=== PATIENT | female | born 1935 | race Caucasian/White ===

== ENCOUNTER 2018-02-02 19:52 | Inpatient (IN) ==
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
[2018-02-02 21:20] LABS: Baso % (Auto) 0.5 % (0.0-2.0); Eos % (Auto) 0.4 % (0.0-4.0); Hematocrit 35.3 % (35.0-46.0); Hemoglobin 11.9 gm/dL (11.6-15.3); Lymph # (Auto) 1.4 th/mm3 (1.0-4.8); Lymph % (Auto) 22.4 % (9.0-44.0); Mean Corpuscular HGB Conc 33.8 % (32.0-36.0); Mean Corpuscular Hemoglobin 32.1 pg (27.0-34.0); Mean Corpuscular Volume 94.8 fL (80.0-100.0); Mono # (Auto) 0.4 th/mm3 (0.0-0.9); Mono % (Auto) 6.1 % (0.0-8.0); Neut # (Auto) 4.3 th/mm3 (1.8-7.7); Neut % (Auto) 70.6 % (16.0-70.0); Platelet Count 299 th/mm3 (150-450); Red Blood Count 3.73 mil/mm3 (4.00-5.30); Red Cell Distribution Width 13.7 % (11.6-17.2); White Blood Count 6.1 th/mm3 (4.0-11.0)
[2018-02-02 21:24] LABS: Amphetamine Screen,Urine Neg (Neg); Barbiturate Screen,Urine Neg (Neg); Cannabinoid Screen,Urine Neg (Neg); Cocaine Screen,Urine Neg (Neg)
[2018-02-02 21:33] LABS: Alanine Aminotransferase 17 U/L (10-53)
[2018-02-02 21:35] LABS: Opiate Screen,Urine Neg (Neg)
[2018-02-02 21:43] LABS: Alkaline Phosphatase 98 U/L (45-117); Total Protein 7.7 g/dL (6.4-8.2)
[2018-02-02 21:44] LABS: Albumin 3.9 g/dL (3.4-5.0); Anion Gap 11 meq/L (5-15); Aspartate Aminotransferase 36 U/L (15-37); Blood Urea Nitrogen 20 mg/dL (7-18); Calcium 8.9 mg/dL (8.5-10.1); Carbon Dioxide 21.2 meq/L (21.0-32.0); Chloride 108 meq/L (98-107); Glomerular Filtration Rate 69 mL/min (>89); Glucose,Random 97 mg/dL (74-106); Potassium 3.7 meq/L (3.5-5.1); Sodium 140 meq/L (136-145)
--- NOTE | 2018-02-02 21:54 | CT ---
EXAM DATE: 02/02/2018 9:10 PM EDT AGE/SEX: 82 years / Female INDICATIONS: Non reactive pupils, altered mental status. CLINICAL DATA: This is the patient's initial encounter. Patient reports that signs and symptoms have been present for 1 day and indicates a pain score of 0/10. MEDICAL/SURGICAL HISTORY: Hypertension. Osteoarthritis. Dementia. None. RADIATION DOSE: 56.35 CTDI (mGy) COMPARISON: No prior exams available for comparison. TECHNIQUE: CT of the head without contrast. Using automated exposure control and adjustment of the mA and/or kV according to patient size, radiation dose was kept as low as reasonably achievable to ob tain optimal diagnostic quality images. DICOM format image data is available electronically for revi ew and comparison. FINDINGS: Cerebrum: The ventricles and cortical sulci are widened. No evidence of midline shift, mass lesion , hemorrhage or acute infarction. No extraaxial fluid collections are seen. Posterior Fossa: The cerebellum and brainstem are intact. The 4th ventricle is midline. The cerebe llopontine angle is unremarkable. Extracranial: The visualized portion of the orbits is intact. Skull: The calvaria is intact. No evidence of skull fracture. 1. No acute abnormality seen. 2. Atrophy. . Electronically signed by: Henrik Whitten MD 02/02/2018 9:52 PM EDT
[2018-02-03] MEDS ORDERED: Aluminum/Magnesium/Simethacone Susp 30 ML UDC PO PRN (13:03)
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
[2018-02-03] MEDS: Ferrous Sulfate 325 MG Tablet PO SCH (18:45)
[2018-02-03] MEDS: DONEPEZIL 10 MG PO SCH (23:12)
[2018-02-03] MEDS: Divalproex 125 MG Sprinkles Capsule PO SCH (23:12)
[2018-02-04] MEDS: Lisinopril 10 MG Tablet PO SCH ×2 (10:10→17:47)
[2018-02-04] MEDS: Ferrous Sulfate 325 MG Tablet PO SCH ×2 (10:11→17:45)
[2018-02-04] MEDS ORDERED: Aluminum/Magnesium/Simethacone Susp 30 ML UDC PO PRN (10:55)
[2018-02-04] MEDS ORDERED: Acetaminophen 325 MG Tablet PO PRN (10:55)
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
[2018-02-04] MEDS: Escitalopram 10 MG Tablet PO SCH (17:45)
[2018-02-04] MEDS: MULTIVITAMIN WITH MINERALS PO SCH (17:46)
[2018-02-04] MEDS: amLODIPine 5 MG Tablet PO SCH (17:46)
[2018-02-04] MEDS: Timolol 0.5% Drops 5 ML Bottle EACH EYE SCH (17:47)
[2018-02-04] MEDS: Divalproex 125 MG Sprinkles Capsule PO SCH (21:09)
[2018-02-04] MEDS: DONEPEZIL 10 MG PO SCH (21:09)
[2018-02-05] MEDS: Lisinopril 10 MG Tablet PO SCH (09:19)
[2018-02-05] MEDS: amLODIPine 5 MG Tablet PO SCH (09:19)
[2018-02-05] MEDS: Ferrous Sulfate 325 MG Tablet PO SCH ×2 (10:21→12:35)
[2018-02-05] MEDS: Escitalopram 10 MG Tablet PO SCH (10:21)
[2018-02-05] MEDS: MULTIVITAMIN WITH MINERALS PO SCH (10:22)
[2018-02-05] MEDS: Timolol 0.5% Drops 5 ML Bottle EACH EYE SCH (10:22)
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
--- NOTE | 2018-02-05 14:10 | ECG ---
Date Performed: 02/04/2018 Time Performed: 13:38:30 PTAGE: 82 years EKG: Sinus rhythm NORMAL ECG NO PREVIOUS TRACING DOCTOR: Valentino Neff Interpretating Date/Time 02/05/2018 14:07:41
--- NOTE | 2018-02-05 14:25 | P.PNPSY ---
Subjective Remarks: This is a request for second opinion. Admission note was reviewed and I agree with the history. Patient was seen and case was discussed with nursing. Patient is alert and oriented 1. She is labile irritable and internally preoccupied. There is auto Kadi perseveration on various topics. Oppositional with her care Mental Status Examination Appearance: Appropriate Consciousness: Alert Orientation: Person Motor Activity: Other (Patient sitting in chair unable to ascertain) Speech: Pressured, Rapid, Other (Marked perseveration) Language: Perseveration Fund of Knowledge: Poor Attention and Concentration: Easily distracted Memory: Impaired Mood: Angry Affect: Other (Increased range and intensity) Thought Process & Associations: Other (Marked perseveration) Thought Content: Other (Marked perseveration) Hallucination Type: None (None noted) Delusion Type: None Suicidal Ideation: No Suicidal Plan: No Suicidal Intention: No Homicidal Ideation: No Homicidal Plan: No Homicidal Intention: No Insight: Poor Judgment: Poor Assessment and Plan - Assessment (1) Dementia in other diseases classified elsewhere with behavioral disturbance Code(s): F02.81 - Dementia in other diseases classified elsewhere with behavioral disturbance Status: Acute (2) Alzheimer's disease with late onset Code(s): G30.1 - Alzheimer's disease with late onset; F02.80 - Dementia in other diseases classified elsewhere without behavioral disturbance Status: Acute - Plan Plan: I agree with the first opinion to continue petition. Criteria include acute psychosis Justification for Continued Inpatient Stay: Patient would decompensate in a less restrictive setting Request Healthcare Surrogate/Guardian Advocate?: Yes
[2018-02-05] MEDS: DONEPEZIL 10 MG PO SCH (21:48)
[2018-02-05] MEDS: Divalproex 125 MG Sprinkles Capsule PO SCH (21:48)
[2018-02-06] MEDS: Ferrous Sulfate 325 MG Tablet PO SCH ×4 (07:49→17:03)
[2018-02-06] MEDS: Escitalopram 10 MG Tablet PO SCH (08:29)
[2018-02-06] MEDS: MULTIVITAMIN WITH MINERALS PO SCH (08:29)
[2018-02-06] MEDS: amLODIPine 5 MG Tablet PO SCH (08:29)
[2018-02-06] MEDS: Timolol 0.5% Drops 5 ML Bottle EACH EYE SCH (08:29)
[2018-02-06] MEDS: Lisinopril 10 MG Tablet PO SCH (08:29)
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
--- NOTE | 2018-02-06 14:23 | P.PNPSY ---
Subjective Remarks: Patient was seen and case discussed with nursing. Patient remains oppositional with her care. With medications. She is quite confused and has profound autolalia. Largely seclusive to her room. Internally stimulated Mental Status Examination Appearance: Appropriate Consciousness: Alert Orientation: Person Motor Activity: Other (Patient sitting in chair unable to ascertain) Speech: Pressured, Rapid, Other (Marked perseveration) Language: Perseveration Fund of Knowledge: Poor Attention and Concentration: Easily distracted Memory: Impaired Mood: Angry Affect: Other (Increased range and intensity) Thought Process & Associations: Other (Marked perseveration) Thought Content: Other (Marked perseveration) Hallucination Type: None (None noted) Delusion Type: None Suicidal Ideation: No Suicidal Plan: No Suicidal Intention: No Homicidal Ideation: No Homicidal Plan: No Homicidal Intention: No Insight: Poor Judgment: Poor Assessment and Plan - Assessment (1) Dementia in other diseases classified elsewhere with behavioral disturbance Code(s): F02.81 - Dementia in other diseases classified elsewhere with behavioral disturbance Status: Acute (2) Alzheimer's disease with late onset Code(s): G30.1 - Alzheimer's disease with late onset; F02.80 - Dementia in other diseases classified elsewhere without behavioral disturbance Status: Acute - Plan Plan: I agree with the first opinion to continue petition. Criteria include acute psychosis Justification for Continued Inpatient Stay: Patient would decompensate in a less restrictive setting Request Healthcare Surrogate/Guardian Advocate?: Yes
[2018-02-06] MEDS: Divalproex 125 MG Sprinkles Capsule PO SCH (21:35)
[2018-02-06] MEDS: DONEPEZIL 10 MG PO SCH (22:57)
[2018-02-07] MEDS: Ferrous Sulfate 325 MG Tablet PO SCH ×3 (08:56→17:03)
[2018-02-07] MEDS: MULTIVITAMIN WITH MINERALS PO SCH (08:57)
[2018-02-07] MEDS: Escitalopram 10 MG Tablet PO SCH (08:57)
[2018-02-07] MEDS: Lisinopril 10 MG Tablet PO SCH (08:57)
[2018-02-07] MEDS: amLODIPine 5 MG Tablet PO SCH (08:57)
[2018-02-07] MEDS: Timolol 0.5% Drops 5 ML Bottle EACH EYE SCH (08:57)
[2018-02-07 11:22] LABS: Calcium 8.8 mg/dL (8.5-10.1); Carbon Dioxide 23.1 meq/L (21.0-32.0)
[2018-02-07 11:23] LABS: Chol/HDL Ratio 8.02 Ratio; HDL Cholesterol 40.1 mg/dL (40.0-60.0)
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
[2018-02-07 16:48] LABS: Hemoglobin A1c 4.8 % (4.3-6.0)
[2018-02-07] MEDS: Divalproex 125 MG Sprinkles Capsule PO SCH (21:10)
[2018-02-07] MEDS: DONEPEZIL 10 MG PO SCH (21:11)
[2018-02-08] MEDS: Ferrous Sulfate 325 MG Tablet PO SCH (10:05)
[2018-02-08] MEDS: Escitalopram 10 MG Tablet PO SCH (10:06)
[2018-02-08] MEDS: amLODIPine 5 MG Tablet PO SCH (10:06)
[2018-02-08] MEDS: Lisinopril 10 MG Tablet PO SCH (10:09)
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
== END 2018-02-08 13:40 ==
LOC: NEPD 19:52 → NEDA 02-03 13:09 → H260 02-03 14:24
PROVIDERS: ADMIT Psychiatry & Neurology Psychiatry; ATTEND Psychiatry & Neurology Psychiatry
DX: I10 Essential (primary) hypertension; F02.81 Dementia in other diseases classified elsewhere, unspecified severity, with behavioral disturbance; E55.9 Vitamin D deficiency, unspecified; M19.90 Unspecified osteoarthritis, unspecified site; F32.9 Major depressive disorder, single episode, unspecified; F41.9 Anxiety disorder, unspecified; G30.1 Alzheimer's disease with late onset; H02.60 Xanthelasma of unspecified eye, unspecified eyelid; E78.5 Hyperlipidemia, unspecified; D64.9 Anemia, unspecified

== ENCOUNTER 2018-02-09 09:00 | Inpatient (IN) ==
[2018-02-09 10:52] LABS: Baso % (Auto) 0.3 % (0.0-2.0); Eos # (Auto) 0.1 th/mm3 (0.0-0.4); Eos % (Auto) 1.1 % (0.0-4.0); Hematocrit 37.1 % (35.0-46.0); Hemoglobin 12.6 gm/dL (11.6-15.3); Lymph # (Auto) 1.1 th/mm3 (1.0-4.8); Lymph % (Auto) 21.8 % (9.0-44.0); Mean Corpuscular HGB Conc 33.9 % (32.0-36.0); Mean Corpuscular Hemoglobin 32.6 pg (27.0-34.0); Mean Corpuscular Volume 96.2 fL (80.0-100.0); Mono # (Auto) 0.3 th/mm3 (0.0-0.9); Mono % (Auto) 5.2 % (0.0-8.0); Neut # (Auto) 3.7 th/mm3 (1.8-7.7); Neut % (Auto) 71.6 % (16.0-70.0); Platelet Count 284 th/mm3 (150-450); Red Blood Count 3.86 mil/mm3 (4.00-5.30); Red Cell Distribution Width 13.6 % (11.6-17.2); White Blood Count 5.2 th/mm3 (4.0-11.0)
[2018-02-09 11:10] LABS: Alanine Aminotransferase 20 U/L (10-53); Albumin 3.9 g/dL (3.4-5.0); Anion Gap 8 meq/L (5-15); Aspartate Aminotransferase 31 U/L (15-37); Blood Urea Nitrogen 21 mg/dL (7-18); Calcium 8.8 mg/dL (8.5-10.1); Carbon Dioxide 26.2 meq/L (21.0-32.0); Chloride 110 meq/L (98-107); Glomerular Filtration Rate 63 mL/min (>89); Glucose,Random 100 mg/dL (74-106); Potassium 3.9 meq/L (3.5-5.1); Sodium 144 meq/L (136-145)
[2018-02-09 11:20] LABS: Alkaline Phosphatase 80 U/L (45-117); Thyroid Stimulating Hormone 0.941 uIU/mL (0.358-3.740); Total Protein 7.7 g/dL (6.4-8.2)
[2018-02-09] MEDS ORDERED: LORazepam 1 MG Tablet PO ONE (12:09)
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
[2018-02-09] MEDS ORDERED: Acetaminophen 325 MG Tablet PO PRN (19:51)
[2018-02-09] MEDS: Divalproex 125 MG Sprinkles Capsule PO SCH ×2 (22:46→22:52)
[2018-02-10] MEDS ORDERED: amLODIPine 5 MG Tablet PO SCH (09:00)
[2018-02-10 09:59] LABS: Anion Gap 9 meq/L (5-15); Blood Urea Nitrogen 14 mg/dL (7-18); Calcium 8.7 mg/dL (8.5-10.1); Carbon Dioxide 22.7 meq/L (21.0-32.0); Chloride 110 meq/L (98-107); Glomerular Filtration Rate Greater Than 89 mL/min (>89); Glucose,Random 82 mg/dL (74-106); Potassium 4.1 meq/L (3.5-5.1); Sodium 142 meq/L (136-145)
[2018-02-10 10:16] LABS: Chol/HDL Ratio 7.85 Ratio; Cholesterol 268 mg/dL (120-200); HDL Cholesterol 34.1 mg/dL (40.0-60.0); LDL Cholesterol,Calculated 196 mg/dL (0-99); Triglycerides 188 mg/dL (42-150)
[2018-02-10] MEDS: Escitalopram 10 MG Tablet PO SCH (12:57)
[2018-02-10] MEDS ORDERED: Aluminum/Magnesium/Simethacone Susp 30 ML UDC PO PRN (14:29)
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
[2018-02-10 17:06] LABS: Hemoglobin A1c 4.9 % (4.3-6.0)
[2018-02-11] MEDS: Escitalopram 10 MG Tablet PO SCH (08:47)
[2018-02-11] MEDS: Timolol 0.5% Drops 5 ML Bottle EACH EYE SCH (08:49)
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
--- NOTE | 2018-02-11 12:46 | P.PNPSY ---
Subjective Remarks: Patient seen in day room with floor staff, chart reviewed patient discussed with nurse. Patient somewhat calmer today her perseveration continues but it is less intense with small episodes of more coherent speech. She has been compliant with her medication Review of Systems All other systems reviewed negative except as stated in HPI Mental Status Examination Appearance: Appropriate Consciousness: Alert Orientation: Person Motor Activity: Normal gait Speech: Rapid Language: Perseveration Fund of Knowledge: Poor Attention and Concentration: Inadequate Memory: Impaired Mood: Irritable Affect: Other (Slight increased range and intensity) Thought Process & Associations: Loose associations, Tangential Thought Content: Other (unable to assess due to her gross confusion) Hallucination Type: None Delusion Type: None Suicidal Ideation: No Suicidal Plan: No Suicidal Intention: No Homicidal Ideation: No Homicidal Plan: No Homicidal Intention: No Insight: Poor Judgment: Poor Assessment and Plan - Assessment (1) Dementia in other diseases classified elsewhere with behavioral disturbance Code(s): F02.81 - Dementia in other diseases classified elsewhere with behavioral disturbance Status: Acute (2) Alzheimer's disease with late onset Code(s): G30.1 - Alzheimer's disease with late onset; F02.80 - Dementia in other diseases classified elsewhere without behavioral disturbance Status: Acute - Plan Plan: Patient remains confused demented and irritable low is somewhat soft of the perseveration is not as intense in frequency duration or rate Justification for Continued Inpatient Stay: At this time patient would decompensate a place to a lower level of care Discharge Planning: To be determined Request Healthcare Surrogate/Guardian Advocate?: Yes (2) Alzheimer's disease with late onset Qualifiers: Dementia behavioral disturbance: with behavioral disturbance Qualified Code(s ): G30.1 - Alzheimer's disease with late onset; F02.81 - Dementia in other diseases classified elsewhere with behavioral disturbance
[2018-02-12] MEDS: Escitalopram 10 MG Tablet PO SCH (09:27)
[2018-02-12] MEDS: Timolol 0.5% Drops 5 ML Bottle EACH EYE SCH ×2 (09:32→09:44)
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
[2018-02-13] MEDS: Escitalopram 10 MG Tablet PO SCH (09:39)
[2018-02-13] MEDS: Timolol 0.5% Drops 5 ML Bottle EACH EYE SCH ×2 (09:40→09:46)
--- NOTE | 2018-02-13 14:26 | P.PNPSY ---
Subjective Remarks: Reviewed electronic medical records and discussed case with staff. Follow-up was conducted in her room with nurse present. Patient was seen during her medication past. She is compliant with her medications. Her mood is good and her affect is euthymic. She reports that she slept well and her appetite's been good. She denies any complaints. She still remains confused but is pleasantly so at this time. Staff report no behaviors. Mental Status Examination Appearance: Appropriate Consciousness: Alert Orientation: Person Motor Activity: Normal gait Speech: Unremarkable, Other (Echolalia) Language: Perseveration Fund of Knowledge: Poor Attention and Concentration: Inadequate Memory: Impaired Mood: Appropriate, Other ("Okay") Affect: Other (Slight increased range and intensity) Thought Process & Associations: Loose associations, Tangential Thought Content: Other (unable to assess due to her gross confusion) Hallucination Type: None Delusion Type: None Suicidal Ideation: No Suicidal Plan: No Suicidal Intention: No Homicidal Ideation: No Homicidal Plan: No Homicidal Intention: No Insight: Poor Judgment: Poor Assessment and Plan - Assessment (1) Dementia with behavioral disturbance Code(s): F03.91 - Unspecified dementia with behavioral disturbance Status: Acute - Plan Plan: Patient will be reevaluated tomorrow by the attending psychiatrist. Continue with current treatment plan. Justification for Continued Inpatient Stay: Moving this patient to a less restrictive environment would likely result in decompensation. Request Healthcare Surrogate/Guardian Advocate?: Yes (1) Dementia with behavioral disturbance Qualifiers: Dementia type: unspecified type Qualified Code(s): F03.91 - Unspecified dementia with behavioral disturbance
[2018-02-14] MEDS: Escitalopram 10 MG Tablet PO SCH (09:37)
[2018-02-14] MEDS: Timolol 0.5% Drops 5 ML Bottle EACH EYE SCH (09:38)
--- NOTE | 2018-02-14 16:10 | P.PNPSY ---
Subjective Remarks: Reviewed electronic medical records and discussed case with staff. Follow-up was conducted in the hallway. She is observed sitting in a chair in the hallway apparently reading the business section of a newspaper. When asked how she is doing today she states, "okay I guess". She reports that she slept pretty good last night. Her nurse advised that she is currently complained of some dysuria and dizziness and had a strong foul-smelling cloudy urine. I have ordered UA with culture if indicated and a consult once the sample has resulted. Mental Status Examination Appearance: Appropriate Consciousness: Alert Orientation: Person Motor Activity: Normal gait Speech: Unremarkable, Other (Echolalia) Language: Perseveration Fund of Knowledge: Poor Attention and Concentration: Inadequate Memory: Impaired Mood: Appropriate, Other ("Okay") Affect: Other (Slight increased range and intensity) Thought Process & Associations: Loose associations, Tangential Thought Content: Other (unable to assess due to her gross confusion) Hallucination Type: None Delusion Type: None Suicidal Ideation: No Suicidal Plan: No Suicidal Intention: No Homicidal Ideation: No Homicidal Plan: No Homicidal Intention: No Insight: Poor Judgment: Poor Assessment and Plan - Assessment (1) Dementia with behavioral disturbance Code(s): F03.91 - Unspecified dementia with behavioral disturbance Status: Acute - Plan Plan: Patient will be reevaluated tomorrow by the attending psychiatrist. Continue with current treatment plan. Justification for Continued Inpatient Stay: Moving this patient to a less restrictive environment would likely result in decompensation. Request Healthcare Surrogate/Guardian Advocate?: Yes (1) Dementia with behavioral disturbance Qualifiers: Dementia type: unspecified type Qualified Code(s): F03.91 - Unspecified dementia with behavioral disturbance
[2018-02-15] MEDS: Timolol 0.5% Drops 5 ML Bottle EACH EYE SCH (08:16)
[2018-02-15] MEDS: Escitalopram 10 MG Tablet PO SCH (08:16)
--- NOTE | 2018-02-15 15:08 | P.PNPSY ---
Subjective Remarks: Patient seen in her room with nurse Jeanie, chart reviewed, patient compliant medication. Patient laying quietly in bed she continues to perseverate though the intensity and the duration is softer. She makes better eye contact. Is not as angry or hostile. And with the cleaning up of her redundant medications she has been much more compliant and cooperative with her meds Review of Systems All other systems reviewed negative except as stated in HPI Mental Status Examination Appearance: Appropriate Consciousness: Alert Orientation: Person Motor Activity: Normal gait Speech: Unremarkable, Other (Echolalia) Language: Perseveration Fund of Knowledge: Poor Attention and Concentration: Inadequate Memory: Impaired Mood: Appropriate, Other ("Okay") Affect: Other (Slight increased range and intensity) Thought Process & Associations: Loose associations, Tangential Thought Content: Other (unable to assess due to her gross confusion) Hallucination Type: None Delusion Type: None Suicidal Ideation: No Suicidal Plan: No Suicidal Intention: No Homicidal Ideation: No Homicidal Plan: No Homicidal Intention: No Insight: Poor Judgment: Poor Assessment and Plan - Assessment (1) Dementia in other diseases classified elsewhere with behavioral disturbance Code(s): F02.81 - Dementia in other diseases classified elsewhere with behavioral disturbance Status: Acute (2) Alzheimer's disease with late onset Code(s): G30.1 - Alzheimer's disease with late onset; F02.80 - Dementia in other diseases classified elsewhere without behavioral disturbance Status: Acute - Plan Plan: Patient remains demented perseverative confused at times somewhat labile and irritable but overall markedly improved. We will have counselor contact detention to see if they can come out and reassess her Justification for Continued Inpatient Stay: At this time patient would decompensate if not placed in an appropriate level of care Discharge Planning: Hopefully be placed back on her detention Request Healthcare Surrogate/Guardian Advocate?: Yes (2) Alzheimer's disease with late onset Qualifiers: Dementia behavioral disturbance: with behavioral disturbance Qualified Code(s ): G30.1 - Alzheimer's disease with late onset; F02.81 - Dementia in other diseases classified elsewhere with behavioral disturbance
[2018-02-16] MEDS: Escitalopram 10 MG Tablet PO SCH (09:45)
[2018-02-16] MEDS: Timolol 0.5% Drops 5 ML Bottle EACH EYE SCH (09:48)
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
[2018-02-17] MEDS: Escitalopram 10 MG Tablet PO SCH (10:57)
[2018-02-17] MEDS: Timolol 0.5% Drops 5 ML Bottle EACH EYE SCH (11:00)
--- NOTE | 2018-02-17 13:46 | P.PNPSY ---
Subjective Remarks: Patient is scheduled for discharge yesterday. It appears that the very last minute the receiving facility demanded more documentation of various types along with labs from us before that would accept the patient this necessitated us canceling to the discharge and having the patient placed back in the hospital. Patient was seen today with floor staff there is no significant change with her behavior or mental status. She still remains demented marked perseveration but no significant behavioral problems. We will continue to work with the placement facility Review of Systems All other systems reviewed negative except as stated in HPI Mental Status Examination Appearance: Appropriate Consciousness: Alert Orientation: Person Motor Activity: Normal gait Speech: Unremarkable, Other (Echolalia) Language: Perseveration Fund of Knowledge: Poor Attention and Concentration: Inadequate Memory: Impaired Mood: Appropriate, Other ("Okay") Affect: Other (Slight increased range and intensity) Thought Process & Associations: Loose associations, Tangential Thought Content: Other (unable to assess due to her gross confusion) Hallucination Type: None Delusion Type: None Suicidal Ideation: No Suicidal Plan: No Suicidal Intention: No Homicidal Ideation: No Homicidal Plan: No Homicidal Intention: No Insight: Poor Judgment: Poor Assessment and Plan - Assessment (1) Dementia in other diseases classified elsewhere with behavioral disturbance Code(s): F02.81 - Dementia in other diseases classified elsewhere with behavioral disturbance Status: Acute (2) Alzheimer's disease with late onset Code(s): G30.1 - Alzheimer's disease with late onset; F02.80 - Dementia in other diseases classified elsewhere without behavioral disturbance Status: Acute - Plan Plan: Patient remains demented the low significant behavioral issues. We will continue to work with supplying the r placement facility with the data a demand before accepting her Justification for Continued Inpatient Stay: At this time patient would decompensate a place to a lower level of care Discharge Planning: To be determined Request Healthcare Surrogate/Guardian Advocate?: Yes (2) Alzheimer's disease with late onset Qualifiers: Dementia behavioral disturbance: with behavioral disturbance Qualified Code(s ): G30.1 - Alzheimer's disease with late onset; F02.81 - Dementia in other diseases classified elsewhere with behavioral disturbance
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
[2018-02-17 17:21] LABS: Bacteria,Urine Occasional /hpf; Bilirubin,Urine Negative (Negative); Clarity,Urine Hazy (Clear); Color,Urine Yellow (Yellw/Straw); Glucose,Urine (UA) Negative (Negative); Leukocyte Esterase,Urine Large (Negative); Mucus,Urine Few /lpf (Occasional); Nitrite,Urine Negative (Negative); Specific Gravity,Urine 1.021 (1.002-1.035); Squamous Epithelial Cell,Urine 3 /hpf (0-5); Transitional Epi Cells,Urine <1 /hpf
[2018-02-18] MEDS: Escitalopram 10 MG Tablet PO SCH (08:43)
[2018-02-18] MEDS: Timolol 0.5% Drops 5 ML Bottle EACH EYE SCH (08:45)
--- NOTE | 2018-02-18 13:45 | P.PNPSY ---
Subjective Remarks: Patient seen and wells with floor staff, patient sitting in chair, chart reviewed , patient continues to be aggressive when approached for any type of intervention. She continues diffusely confused in all 4 spheres. She continues markedly perseverative with her responses. We will increase Resporal 2.5 mg twice daily Review of Systems All other systems reviewed negative except as stated in HPI Mental Status Examination Appearance: Appropriate Consciousness: Alert Orientation: Person Motor Activity: Normal gait Speech: Unremarkable, Other (Echolalia) Language: Perseveration Fund of Knowledge: Poor Attention and Concentration: Inadequate Memory: Impaired Mood: Appropriate, Other ("Okay") Affect: Other (Slight increased range and intensity) Thought Process & Associations: Loose associations, Tangential Thought Content: Other (unable to assess due to her gross confusion) Hallucination Type: None Delusion Type: None Suicidal Ideation: No Suicidal Plan: No Suicidal Intention: No Homicidal Ideation: No Homicidal Plan: No Homicidal Intention: No Insight: Poor Judgment: Poor Assessment and Plan - Assessment (1) Dementia in other diseases classified elsewhere with behavioral disturbance Code(s): F02.81 - Dementia in other diseases classified elsewhere with behavioral disturbance Status: Acute (2) Alzheimer's disease with late onset Code(s): G30.1 - Alzheimer's disease with late onset; F02.80 - Dementia in other diseases classified elsewhere without behavioral disturbance Status: Acute - Plan Plan: Patient continues markedly demented irritable at times somewhat aggressive. She medication adjustment above Justification for Continued Inpatient Stay: At this time patient would decompensate a place to a lower level of care Discharge Planning: To be determined Request Healthcare Surrogate/Guardian Advocate?: Yes (2) Alzheimer's disease with late onset Qualifiers: Dementia behavioral disturbance: with behavioral disturbance Qualified Code(s ): G30.1 - Alzheimer's disease with late onset; F02.81 - Dementia in other diseases classified elsewhere with behavioral disturbance
--- NOTE | 2018-02-18 14:29 | P.EN ---
Reconsult placed for possible UTI, UA recheck was negative, VSS, afebrile. [facility] will sign off. Please reconsult if needed.
[2018-02-19] MEDS: Escitalopram 10 MG Tablet PO SCH (09:50)
[2018-02-19] MEDS: Timolol 0.5% Drops 5 ML Bottle EACH EYE SCH (09:52)
--- NOTE | 2018-02-19 12:20 | P.PNPSY ---
Subjective Remarks: Patient was seen and case discussed with nursing. Medicine signed off the case. Patient remains alert and oriented 1 and internally preoccupied. She has persistent echolalia. She is anxious and paranoid throughout the day. No outbursts today Mental Status Examination Appearance: Appropriate Consciousness: Alert Orientation: Person Motor Activity: Normal gait Speech: Unremarkable, Other (Echolalia) Language: Perseveration Fund of Knowledge: Poor Attention and Concentration: Inadequate Memory: Impaired Mood: Appropriate, Other ("Okay") Affect: Other (Slight increased range and intensity) Thought Process & Associations: Loose associations, Tangential Thought Content: Other (unable to assess due to her gross confusion) Hallucination Type: None Delusion Type: None Suicidal Ideation: No Suicidal Plan: No Suicidal Intention: No Homicidal Ideation: No Homicidal Plan: No Homicidal Intention: No Insight: Poor Judgment: Poor Assessment and Plan - Assessment (1) Dementia in other diseases classified elsewhere with behavioral disturbance Code(s): F02.81 - Dementia in other diseases classified elsewhere with behavioral disturbance Status: Acute (2) Alzheimer's disease with late onset Code(s): G30.1 - Alzheimer's disease with late onset; F02.80 - Dementia in other diseases classified elsewhere without behavioral disturbance Status: Acute - Plan Plan: Continue current treatment plan Justification for Continued Inpatient Stay: Patient would decompensate in a less restrictive setting Request Healthcare Surrogate/Guardian Advocate?: Yes (2) Alzheimer's disease with late onset Qualifiers: Dementia behavioral disturbance: with behavioral disturbance Qualified Code(s ): G30.1 - Alzheimer's disease with late onset; F02.81 - Dementia in other diseases classified elsewhere with behavioral disturbance
[2018-02-20] MEDS: Timolol 0.5% Drops 5 ML Bottle EACH EYE SCH (09:50)
[2018-02-20] MEDS: Escitalopram 10 MG Tablet PO SCH (09:50)
--- NOTE | 2018-02-20 12:22 | P.PNPSY ---
Subjective Remarks: Patient was seen and case discussed with nursing. Patient is alert and oriented 1. No aggressive behavior today. She remains very confused and has perseverations a day and her food with echolalia. Compliant with medications, no outbursts. Mental Status Examination Appearance: Appropriate Consciousness: Alert Orientation: Person Motor Activity: Normal gait Speech: Unremarkable, Other (Echolalia) Language: Perseveration Fund of Knowledge: Poor Attention and Concentration: Inadequate Memory: Impaired Mood: Appropriate, Other ("Okay") Affect: Other (Slight increased range and intensity) Thought Process & Associations: Loose associations, Tangential Thought Content: Other (unable to assess due to her gross confusion) Hallucination Type: None Delusion Type: None Suicidal Ideation: No Suicidal Plan: No Suicidal Intention: No Homicidal Ideation: No Homicidal Plan: No Homicidal Intention: No Insight: Poor Judgment: Poor Assessment and Plan - Assessment (1) Dementia in other diseases classified elsewhere with behavioral disturbance Code(s): F02.81 - Dementia in other diseases classified elsewhere with behavioral disturbance Status: Acute (2) Alzheimer's disease with late onset Code(s): G30.1 - Alzheimer's disease with late onset; F02.80 - Dementia in other diseases classified elsewhere without behavioral disturbance Status: Acute - Plan Plan: Continue current treatment plan Justification for Continued Inpatient Stay: Patient would decompensate in a less restrictive setting Request Healthcare Surrogate/Guardian Advocate?: Yes (2) Alzheimer's disease with late onset Qualifiers: Dementia behavioral disturbance: with behavioral disturbance Qualified Code(s ): G30.1 - Alzheimer's disease with late onset; F02.81 - Dementia in other diseases classified elsewhere with behavioral disturbance
[2018-02-20] MEDS ORDERED: Haloperidol Inj 5 MG/ML Ampul IM ONE (23:30)
[2018-02-21] MEDS: Timolol 0.5% Drops 5 ML Bottle EACH EYE SCH (09:40)
[2018-02-21] MEDS: Escitalopram 10 MG Tablet PO SCH (09:40)
--- NOTE | 2018-02-21 20:31 | P.PNPSY ---
Subjective Remarks: Patient seen for follow, chart reviewed. Discussion nursing staff reported patient continues with baseline confusion, preoccupied with her bowels, had ETO last evening patient was noted to be agitated but compliant with medication. Patient was found lying hospital bed, cooperative. Patient continues to have some echolalia noted, continues to have confusion stating that she is occupied with chores while her baby sleeps. Review of Systems All other systems reviewed negative except as stated in HPI Mental Status Examination Appearance: Appropriate Consciousness: Alert Orientation: Person Motor Activity: Normal gait Speech: Unremarkable, Other (Echolalia) Language: Perseveration Fund of Knowledge: Poor Attention and Concentration: Inadequate Memory: Impaired Mood: Appropriate, Other ("Okay") Affect: Other (Slight increased range and intensity) Thought Process & Associations: Loose associations, Tangential Thought Content: Other (unable to assess due to her gross confusion) Hallucination Type: None Delusion Type: None Suicidal Ideation: No Suicidal Plan: No Suicidal Intention: No Homicidal Ideation: No Homicidal Plan: No Homicidal Intention: No Insight: Poor Judgment: Poor Assessment and Plan - Assessment (1) Dementia in other diseases classified elsewhere with behavioral disturbance Code(s): F02.81 - Dementia in other diseases classified elsewhere with behavioral disturbance Status: Acute (2) Alzheimer's disease with late onset Code(s): G30.1 - Alzheimer's disease with late onset; F02.80 - Dementia in other diseases classified elsewhere without behavioral disturbance Status: Acute - Plan Plan: Patient continues with baseline confusion secondary to neurocognitive deficits. Patient would not any behavioral disturbances recently,, has been compliant with medications. Continue to monitor mood and behavior. Discharge planning in progress. Justification for Continued Inpatient Stay: At risk for further decompensation if at lower level of care. Request Healthcare Surrogate/Guardian Advocate?: Yes (2) Alzheimer's disease with late onset Qualifiers: Dementia behavioral disturbance: with behavioral disturbance Qualified Code(s ): G30.1 - Alzheimer's disease with late onset; F02.81 - Dementia in other diseases classified elsewhere with behavioral disturbance
[2018-02-22] MEDS: Escitalopram 10 MG Tablet PO SCH (09:48)
[2018-02-22] MEDS: Timolol 0.5% Drops 5 ML Bottle EACH EYE SCH (09:49)
--- NOTE | 2018-02-22 12:40 | P.PNPSY ---
Subjective Remarks: Patient seen today in her room with nurse Dinorah, chart reviewed, patient compliant medication. Patient laying in bed saying she is not very hungry for lunch tray only partially eaten sitting at her bedside. Carol was able to drawing together about 3 sentences a logical sequence. Before succumbing to the perseveration that is characterized. Patient continues to remain quite problematic Review of Systems All other systems reviewed negative except as stated in HPI Mental Status Examination Appearance: Appropriate Consciousness: Alert Orientation: Person Motor Activity: Normal gait Speech: Unremarkable, Other (Echolalia) Language: Perseveration Fund of Knowledge: Poor Attention and Concentration: Inadequate Memory: Impaired Mood: Appropriate, Other ("Okay") Affect: Other (Slight increased range and intensity) Thought Process & Associations: Loose associations, Tangential Thought Content: Other (unable to assess due to her gross confusion) Hallucination Type: None Delusion Type: None Suicidal Ideation: No Suicidal Plan: No Suicidal Intention: No Homicidal Ideation: No Homicidal Plan: No Homicidal Intention: No Insight: Poor Judgment: Poor Assessment and Plan - Assessment (1) Dementia in other diseases classified elsewhere with behavioral disturbance Code(s): F02.81 - Dementia in other diseases classified elsewhere with behavioral disturbance Status: Acute (2) Alzheimer's disease with late onset Code(s): G30.1 - Alzheimer's disease with late onset; F02.80 - Dementia in other diseases classified elsewhere without behavioral disturbance Status: Acute - Plan Plan: Patient continues diffusely confused demented, her behaviors have softened. She is compliant with her medication. Justification for Continued Inpatient Stay: Placement remains problematic, she may decompensate if not placed in an appropriate level of care Discharge Planning: To be determined Request Healthcare Surrogate/Guardian Advocate?: Yes (2) Alzheimer's disease with late onset Qualifiers: Dementia behavioral disturbance: with behavioral disturbance Qualified Code(s ): G30.1 - Alzheimer's disease with late onset; F02.81 - Dementia in other diseases classified elsewhere with behavioral disturbance
[2018-02-22] MEDS ORDERED: Acetaminophen 325 MG Tablet PO PRN (12:43)
[2018-02-23 06:08] VITALS: BP 110/64; PULSE 65; RESP 18; TEMP 97.5; O2SAT 98
[2018-02-23] MEDS: Escitalopram 10 MG Tablet PO SCH (09:40)
[2018-02-23] MEDS: Timolol 0.5% Drops 5 ML Bottle EACH EYE SCH (09:40)
--- NOTE | 2018-02-23 13:48 | P.PNPSY ---
Subjective Remarks: Patient seen in day room with nurse, chart reviewed, patient somewhat calmer she continues confused demented and perseverative though the intensity and frequency of the perseveration is softening. Patient is scheduled for rehearing [place] tomorrow. Please continues to remain problematic Review of Systems All other systems reviewed negative except as stated in HPI Mental Status Examination Appearance: Appropriate Consciousness: Alert Orientation: Person Motor Activity: Normal gait Speech: Unremarkable, Other (Echolalia) Language: Perseveration Fund of Knowledge: Poor Attention and Concentration: Inadequate Memory: Impaired Mood: Appropriate, Other ("Okay") Affect: Other (Slight increased range and intensity) Thought Process & Associations: Loose associations, Tangential Thought Content: Other (unable to assess due to her gross confusion) Hallucination Type: None Delusion Type: None Suicidal Ideation: No Suicidal Plan: No Suicidal Intention: No Homicidal Ideation: No Homicidal Plan: No Homicidal Intention: No Insight: Poor Judgment: Poor Assessment and Plan - Assessment (1) Dementia in other diseases classified elsewhere with behavioral disturbance Code(s): F02.81 - Dementia in other diseases classified elsewhere with behavioral disturbance Status: Acute (2) Alzheimer's disease with late onset Code(s): G30.1 - Alzheimer's disease with late onset; F02.80 - Dementia in other diseases classified elsewhere without behavioral disturbance Status: Acute - Plan Plan: Patient continues confused and demented though behaviors have softened somewhat Justification for Continued Inpatient Stay: At this time patient would decompensate if not placed in an appropriate level of care Discharge Planning: To be determined placement is becoming more difficult and problematic Request Healthcare Surrogate/Guardian Advocate?: Yes (2) Alzheimer's disease with late onset Qualifiers: Dementia behavioral disturbance: with behavioral disturbance Qualified Code(s ): G30.1 - Alzheimer's disease with late onset; F02.81 - Dementia in other diseases classified elsewhere with behavioral disturbance
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
== END 2018-02-23 17:55 ==
LOC: NEPD 09:00 → NEDA 13:29 → H260 14:28
PROVIDERS: ADMIT Psychiatry & Neurology Psychiatry; ATTEND Psychiatry & Neurology Psychiatry